=== PATIENT | female | born 1940 | race Caucasian/White ===

== ENCOUNTER 2024-08-13 13:36 | Inpatient (IN) ==
[2024-08-13 15:30] LABS: POC Calcium, Ionized 1.15 (1.16-1.32); POC Creatinine 0.8 (0.6-1.2); POC Potassium 4.5 (3.3-5.1)
[2024-08-13] MEDS: ONDANSETRON 4 MG/2 ML VIAL IV ONE (16:11)
[2024-08-13] MEDS: 0.9 % SODIUM CHLORIDE 1,000 ML IV SCH (16:13)
[2024-08-13 16:16] LABS: Basophils # (Auto) 0.02 K/mcL (0.00-0.30); Basophils % (Auto) 0.2 % (0.0-2.0); Hematocrit 38.5 % (34.1-44.9); Hemoglobin 12.8 g/dL (11.2-15.7); Lymphocytes # (Auto) 1.25 K/mcL (1.50-4.80); Lymphocytes % (Auto) 14.3 % (15.5-49.0); Mean Corpuscular HGB Conc 33.2 g/dL (31.0-36.0); Mean Platelet Volume 9.6 fL (8.8-12.5); Monocytes # (Auto) 0.95 K/mcL (0.10-0.90); Monocytes % (Auto) 10.9 % (1.0-12.0); Neutrophils % (Auto) 66.3 % (38.0-78.0); Platelet Count 292 K/mcL (140-440); RBC 4.53 M/mcL (3.59-5.38); Red Cell Distribution Width 13.8 % (11.5-14.5); WBC 8.7 K/mcL (4.5-11.0)
[2024-08-13 16:41] LABS: ALT/SGPT 10 U/L (<40); AST/SGOT 18 U/L (<32); Albumin 3.9 gm/dL (3.2-5.2); Albumin/Globulin Ratio 1.5 (1.0-2.3); Alkaline Phosphatase 74 U/L (39-117); Bilirubin,Total 0.4 mg/dL (0.1-1.0); Blood Urea Nitrogen 16 mg/dL (8-23); Calcium 9.1 mg/dL (8.6-10.4); Carbon Dioxide 24 mmol/L (22-30); Chloride 87 mmol/L (96-108); Globulin 2.6 gm/dL (2.2-3.7); Glomerular Filtration Rate 80; Glucose 105 mg/dL (70-105); Potassium 4.7 mmol/L (3.3-5.1); Sodium 123 mmol/L (133-145)
[2024-08-13 16:42] LABS: Thyroid Stimulating Hormone 0.99 uIU/mL (0.27-5.01)
[2024-08-13 17:00] LABS: Appearance,Urine Clear (Clear); Bilirubin,Urine Negative (Negative); Color,Urine Yellow; Glucose,Urine (UA) Negative (Negative); Ketones,Urine Negative (Negative); Leukocyte Esterase,Urine Negative /uL (Negative); Nitrate,Urine Negative (Negative); Protein,Urine Negative (Negative); Specific Gravity,Urine 1.015 (1.000-1.035); Urine Blood Negative ery/mcL (Negative); Urobilinogen,Urine Normal
[2024-08-13 19:13] LABS: Sodium, Urine Random 26 mmol/L
[2024-08-13 19:24] LABS: Osmolality,Urine 126 mOSM/kg (80-1000)
[2024-08-13] MEDS ORDERED: ONDANSETRON 4 MG/2 ML VIAL IV PRN (20:31)
[2024-08-13] MEDS ORDERED: SENNOSIDES 1 TABLET PO PRN (20:31)
[2024-08-13] MEDS ORDERED: oxyCODONE/APAP 5/325MG TABLET PO PRN (20:31)
[2024-08-13] MEDS ORDERED: METHOCARBAMOL 500 MG TABLET PO PRN ×2 (20:31→20:41)
[2024-08-13] MEDS ORDERED: traZODone HCL 50 MG TABLET PO PRN (20:31)
[2024-08-13] MEDS ORDERED: MAGNESIUM HYDROXIDE 30 ML ORAL.SUSP PO PRN (20:31)
[2024-08-13] MEDS ORDERED: [UNRECOGNIZED DRUG - OTHER] PO SCH (21:00)
[2024-08-13 21:10] LABS: Sodium 128 mmol/L (133-145)
[2024-08-13] MEDS: MELATONIN 3 MG TABLET PO SCH (21:13)
[2024-08-13] MEDS: ENOXAPARIN 40 MG/0.4 ML SYRINGE SQ SCH (21:13)
[2024-08-13] MEDS: CALCIUM CARBONATE 500 MG TAB.CHEW CHEWED SCH (21:13)
[2024-08-13] MEDS: MONTELUKAST 10 MG TABLET PO SCH (21:13)
[2024-08-13] MEDS: GABAPENTIN 300 MG CAPSULE PO PRN (21:13)
[2024-08-13] MEDS: ESTRADIOL VAG CREAM 42GM TUBE VAG SCH (21:14)
[2024-08-13] MEDS: Cyclosporine [Restasis] 0.05 % dropperette OP SCH (21:14)
[2024-08-13] MEDS: CELECOXIB 200 MG CAPSULE PO SCH (21:14)
[2024-08-13] MEDS: 0.9 % SODIUM CHLORIDE 10 ML SYRINGE IV SCH (22:11)
[2024-08-14 05:25] LABS: Basophils # (Auto) 0.02 K/mcL (0.00-0.30); Basophils % (Auto) 0.2 % (0.0-2.0); Eosinophils # (Auto) 0.85 K/mcL (0.00-0.70); Eosinophils % (Auto) 10.1 % (0.0-7.0); Hemoglobin 12.4 g/dL (11.2-15.7); Lymphocytes # (Auto) 1.64 K/mcL (1.50-4.80); Lymphocytes % (Auto) 19.4 % (15.5-49.0); Mean Cell Volume 85.8 fL (80.0-100.0); Mean Corpuscular HGB Conc 32.6 g/dL (31.0-36.0); Mean Platelet Volume 9.1 fL (8.8-12.5); Monocytes # (Auto) 0.77 K/mcL (0.10-0.90); Monocytes % (Auto) 9.1 % (1.0-12.0); Neutrophils % (Auto) 60.8 % (38.0-78.0); Platelet Count 287 K/mcL (140-440); RBC 4.43 M/mcL (3.59-5.38); Red Cell Distribution Width 13.8 % (11.5-14.5); WBC 8.4 K/mcL (4.5-11.0)
[2024-08-14 05:45] LABS: Sodium 129 mmol/L (133-145)
[2024-08-14 05:56] LABS: Blood Urea Nitrogen 14 mg/dL (8-23); Carbon Dioxide 22 mmol/L (22-30); Chloride 95 mmol/L (96-108); Glomerular Filtration Rate 80; Glucose 156 mg/dL (70-105); Potassium 4.2 mmol/L (3.3-5.1); Sodium 128 mmol/L (133-145)
[2024-08-14] MEDS: OMEPRAZOLE 20 MG CAPSULE PO SCH (07:23)
[2024-08-14] MEDS: SODIUM CHLORIDE 1 GM TABLET PO SCH ×2 (08:23→20:57)
[2024-08-14] MEDS: SPIRONOLACTONE 25 MG TABLET PO SCH (08:23)
[2024-08-14] MEDS: VITAMIN D3 25 MCG TABLET PO SCH (08:23)
[2024-08-14] MEDS: CALCIUM GLUCONATE 4.65 MEQ in DEXTROSE 5% IN WATER 50 ML IV SCH (08:34)
[2024-08-14] MEDS ORDERED: BIFIDOBACTERIUM INFANTIS PO SCH (09:00)
[2024-08-14] MEDS: ATENOLOL 50 MG TABLET PO SCH ×2 (09:46→20:57)
[2024-08-14] MEDS: LISINOPRIL 20 MG TABLET PO SCH ×2 (09:46→20:58)
[2024-08-14] MEDS: ACETAMINOPHEN 325 MG TABLET PO PRN (10:48)
[2024-08-14 16:32] LABS: Blood Urea Nitrogen 14 mg/dL (8-23); Carbon Dioxide 22 mmol/L (22-30); Chloride 97 mmol/L (96-108); Glomerular Filtration Rate 80; Glucose 110 mg/dL (70-105); Potassium 4.8 mmol/L (3.3-5.1); Sodium 131 mmol/L (133-145)
[2024-08-15 06:29] LABS: Basophils # (Auto) 0.02 K/mcL (0.00-0.30); Basophils % (Auto) 0.3 % (0.0-2.0); Eosinophils # (Auto) 0.77 K/mcL (0.00-0.70); Eosinophils % (Auto) 10.9 % (0.0-7.0); Hematocrit 36.6 % (34.1-44.9); Lymphocytes # (Auto) 1.76 K/mcL (1.50-4.80); Lymphocytes % (Auto) 24.9 % (15.5-49.0); Mean Cell Volume 86.1 fL (80.0-100.0); Mean Corpuscular HGB Conc 32.8 g/dL (31.0-36.0); Mean Platelet Volume 9.3 fL (8.8-12.5); Monocytes # (Auto) 0.84 K/mcL (0.10-0.90); Monocytes % (Auto) 11.9 % (1.0-12.0); Neutrophils % (Auto) 51.6 % (38.0-78.0); Platelet Count 308 K/mcL (140-440); RBC 4.25 M/mcL (3.59-5.38); Red Cell Distribution Width 14.1 % (11.5-14.5); WBC 7.1 K/mcL (4.5-11.0)
[2024-08-15 06:58] LABS: Blood Urea Nitrogen 21 mg/dL (8-23); Carbon Dioxide 26 mmol/L (22-30); Chloride 96 mmol/L (96-108); Glomerular Filtration Rate 80; Glucose 103 mg/dL (70-105); Potassium 4.3 mmol/L (3.3-5.1); Sodium 131 mmol/L (133-145)
[2024-08-15] MEDS: CALCIUM GLUCONATE 4.65 MEQ/10 ML VIAL IV ONE (10:10)
[2024-08-15] MEDS: CALCIUM GLUCONATE 4.65 MEQ in DEXTROSE 5% IN WATER 50 ML IV SCH (10:15)
[2024-08-15 11:07] VITALS: TEMP 97.7; O2SAT 96
== END 2024-08-15 11:32 | disposition home health service (06) | DRG 641 ==
LOC: ED 13:36 → ICU 20:26 → MEDSUR 08-14 17:55
PROVIDERS: ADMIT Student in an Organized Health Care Education/Training Program; ATTEND Student in an Organized Health Care Education/Training Program